=== PATIENT | female | born 1950 | race Caucasian/White ===

== ENCOUNTER 2016-05-28 | Outpatient (CLI) | payer MEDICARE, OTHER | END 2016-05-28 16:48 | disposition short-term general hospital (02) | DX: M54.9 Dorsalgia, unspecified (principal) | CPT/HCPCS: A0170; A0425; A0427 ==

== ENCOUNTER 2016-07-19 09:18 | Outpatient (CLI) | payer MEDICARE, OTHER | END 2016-07-19 09:19 | disposition home or self-care (01) | DX: E78.5 Hyperlipidemia, unspecified (principal); I25.10 Atherosclerotic heart disease of native coronary artery without angina pectoris; J44.9 Chronic obstructive pulmonary disease, unspecified ==

== ENCOUNTER 2016-09-03 14:11 | Outpatient (CLI) | payer MEDICARE, OTHER | END 2016-09-03 14:12 | disposition home or self-care (01) | DX: M16.12 Unilateral primary osteoarthritis, left hip (principal) ==

== ENCOUNTER 2016-10-19 08:57 | Outpatient (CLI) | payer MEDICARE, OTHER ==
[2016-10-19 10:28] LABS: BASOPHILS # (AUTO) 0.1 10^3/uL (0.0-0.1); BASOPHILS % (AUTO) 0.8 %; EOSINOPHILS # (AUTO) 0.2 10^3/uL (0.0-0.7); EOSINOPHILS % (AUTO) 2.5 %; HCT - HEMATOCRIT 46.4 % (37.0-47.0); HGB - HEMOGLOBIN 15.7 g/dL (12.0-16.0); LYMPHOCYTES # (AUTO) 2.3 10^3/uL (1.5-3.5); LYMPHOCYTES % (AUTO) 28.2 %; MEAN CORPUSCULAR HEMOGLOBIN 31.3 pg (27.0-31.0); MEAN CORPUSCULAR HGB CONC 33.9 g/dL (32.0-36.0); MEAN CORPUSCULAR VOLUME 92.1 fL (81.0-99.0); MEAN PLATELET VOLUME 8.7 fL (7.9-10.8); MONOCYTES # (AUTO) 0.6 10^3/uL (0.0-1.0); MONOCYTES % (AUTO) 7.1 %; NEUTROPHILS % (AUTO) 61.4 %; RED BLOOD COUNT 5.04 10^6/uL (4.20-5.40); RED CELL DISTRIBUTION WIDTH 13.9 % (12.0-15.0); UNCORRECTED WHITE BLOOD COUNT 8.1 x10^3/uL; WHITE BLOOD COUNT 8.1 x10^3/uL (4.8-10.8)
[2016-10-19 10:38] LABS: BILIRUBIN,DIRECT 0.1 mg/dL (0.1-0.5); BILIRUBIN,TOTAL 0.5 mg/dL (0.2-1.0); TOTAL PROTEIN 6.6 g/dL (6.7-8.2)
== END 2016-10-19 08:58 | disposition home or self-care (01) ==
LOC: LAB.F 08:57
PROVIDERS: ATTEND Nurse Practitioner Family
DX: R74.8 Abnormal levels of other serum enzymes (principal)
CPT/HCPCS: 36415; 80076; 85025

== ENCOUNTER 2016-12-27 08:37 | Outpatient (CLI) | payer MEDICARE, OTHER ==
[2016-12-27 19:03] LABS: BILIRUBIN,DIRECT 0.1 mg/dL (0.1-0.5); BILIRUBIN,TOTAL 0.7 mg/dL (0.2-1.0); TOTAL PROTEIN 6.7 g/dL (6.7-8.2)
== END 2016-12-27 08:38 | disposition home or self-care (01) ==
LOC: LAB.S 08:37
PROVIDERS: ATTEND Nurse Practitioner Family
DX: R74.8 Abnormal levels of other serum enzymes (principal)
CPT/HCPCS: 36415; 80076

== ENCOUNTER 2017-02-22 08:28 | Outpatient (CLI) | payer MEDICARE, OTHER ==
[2017-02-22 12:39] LABS: BILIRUBIN,DIRECT 0.1 mg/dL (0.1-0.5); BILIRUBIN,TOTAL 0.6 mg/dL (0.2-1.0); CALCIUM 9.8 mg/dL (8.5-10.3); CREATININE 0.8 mg/dL (0.4-1.0); TOTAL PROTEIN 6.6 g/dL (6.7-8.2)
== END 2017-02-22 08:29 | disposition home or self-care (01) ==
LOC: LAB.F 08:28
PROVIDERS: ATTEND Nurse Practitioner Family
DX: R74.8 Abnormal levels of other serum enzymes (principal); E78.5 Hyperlipidemia, unspecified; Z79.899 Other long term (current) drug therapy; I10 Essential (primary) hypertension; Z13.21 Encounter for screening for nutritional disorder; R20.2 Paresthesia of skin
CPT/HCPCS: 36415; 80048; 80076; 82607

== ENCOUNTER 2017-06-13 08:00 | Outpatient (CLI) | payer MEDICARE, OTHER | END 2017-06-13 08:01 | disposition home or self-care (01) | LOC: LAB.R 08:00 | PROVIDERS: ATTEND Nurse Practitioner Family | DX: Z79.891 Long term (current) use of opiate analgesic (principal) | CPT/HCPCS: 80307; 81599; G0480; 80361; 80365 ==

== ENCOUNTER 2017-09-27 08:37 | Outpatient (CLI) | payer MEDICARE, OTHER ==
[2017-09-27 12:10] LABS: CALCIUM 9.6 mg/dL (8.5-10.3); CREATININE 0.7 mg/dL (0.4-1.0)
== END 2017-09-27 08:38 | disposition home or self-care (01) ==
LOC: LAB.F 08:37
PROVIDERS: ATTEND Nurse Practitioner Family
DX: I10 Essential (primary) hypertension (principal)
CPT/HCPCS: 36415; 80048

== ENCOUNTER 2018-01-02 08:00 | Outpatient (CLI) | payer MEDICARE, OTHER ==
[2018-01-02 11:18] LABS: CHOL/HDL RATIO 5.1 (<4.4); CHOLESTEROL 149 mg/dL; HDL CHOLESTEROL 29 mg/dL; LDL CHOLESTEROL,CALCULATED 90 mg/dL; LDL/HDL RATIO 3.1 (<4.4); VLDL CHOLESTEROL 30 mg/dL
== END 2018-01-02 08:01 | disposition home or self-care (01) ==
LOC: LAB.S 08:00
PROVIDERS: ATTEND Nurse Practitioner
DX: I25.10 Atherosclerotic heart disease of native coronary artery without angina pectoris (principal)
CPT/HCPCS: 36415; 80061; 83721

== ENCOUNTER 2018-02-20 08:00 | Outpatient (CLI) | payer MEDICARE, OTHER ==
[2018-02-20 14:29] LABS: MUDS CUTOFF CONCENTRATIONS CUTOFF CONC BELOW:
[2018-02-20 17:52] LABS: AMPHETAMINE SCREEN,URINE NEGATIVE (NEGATIVE); BENZODIAZEPINES SCREEN, URINE NEGATIVE (NEGATIVE); COCAINE SCREEN URINE NEGATIVE (NEGATIVE); METHADONE SCREEN, URINE NEGATIVE (NEGATIVE); METHAMPHETAMINES SCREEN, URINE NEGATIVE (NEGATIVE); OPIATE SCREEN, URINE NEGATIVE (NEGATIVE); OXYCODONE SCREEN, URINE POSITIVE (NEGATIVE); PROPOXYPHENE SCREEN, URINE NEGATIVE (NEGATIVE); TRICYCLIC ANTIDEPRESSANT,URINE NEGATIVE (NEGATIVE)
== END 2018-02-20 08:01 ==
LOC: LAB.R 08:00
PROVIDERS: ATTEND Nurse Practitioner Family
DX: Z79.891 Long term (current) use of opiate analgesic (principal)
CPT/HCPCS: 80306

== ENCOUNTER 2018-05-29 14:09 | Outpatient (CLI) | payer MEDICARE, OTHER ==
--- NOTE | 2018-05-30 01:50 | XRAY Report ---
Reason: LOW BACK PAIN,CHRONIC,HIP PAIN,LEFT,PRESENCE OF OT Procedure Date: 05/29/2018 Accession Number: [id number] / [id number] Procedure: XR - Hip w/Pelvis 2-3V LT CPT Code: FULL RESULT: EXAM: LEFT HIP AND PELVIS RADIOGRAPHY EXAM DATE: 05/29/2018 03:50 PM. HISTORY: LOW BACK PAIN,CHRONIC,HIP PAIN,LEFT,PRESENCE OF OT. COMPARISONS: HIP W/PELVIS 2-3V LT 09/03/2016 2:32 PM. TECHNIQUE: 1 view of the pelvis and 1 view of the hip. FINDINGS: Bones: Normal. No fracture or bone lesion. Joints: Stable osteoarthritis of the left hip. Soft Tissues: Spinal stimulator pack overlying the right hip, stable. IMPRESSION: Stable osteoarthritis of the left hip. RADIA
== END 2018-05-29 14:10 | disposition home or self-care (01) ==
LOC: DI 14:09
PROVIDERS: ATTEND Nurse Practitioner
DX: M16.12 Unilateral primary osteoarthritis, left hip (principal); M54.5 Low back pain; G89.29 Other chronic pain; Z97.8 Presence of other specified devices

== ENCOUNTER 2018-07-03 08:00 | Outpatient (CLI) | payer MEDICARE, OTHER ==
[2018-07-03 18:03] LABS: ALBUMIN 3.6 g/dL (3.2-5.5); ALBUMIN/GLOBULIN RATIO 1.1 (1.0-2.2); BILIRUBIN,TOTAL 0.8 mg/dL (0.2-1.0); CREATININE 0.8 mg/dL (0.4-1.0); TOTAL PROTEIN 6.8 g/dL (6.7-8.2)
== END 2018-07-03 23:59 | disposition home or self-care (01) ==
LOC: LAB.R 08:00
PROVIDERS: ATTEND Nurse Practitioner
DX: E78.5 Hyperlipidemia, unspecified (principal); I25.10 Atherosclerotic heart disease of native coronary artery without angina pectoris
CPT/HCPCS: 80053

== ENCOUNTER 2018-11-14 11:53 | Outpatient (CLI) | payer MEDICARE, OTHER ==
--- NOTE | 2018-11-15 09:12 | CT Report ---
Reason: TOBACCO USE DISORDER Procedure Date: 11/14/2018 Accession Number: [id number] / [id number] Procedure: CT - Low Dose Lung Cancer Screen CPT Code: FULL RESULT: EXAM CT LUNG SCREEN EXAM DATE: 11/14/2018 12:04 PM. HISTORY: 68-year-old patient with [id number] smoking history. Currently smoking: Yes. Years since quitting: None. COMPARISON: CHEST W/O 11/18/2015 11:05 AM CHEST W/O 05/17/2015 11:31 AM. TECHNIQUE: CT examination of the entire thorax without contrast was performed using low-dose technique. Thin section coronal, axial, sagittal and MIP axial images were obtained. In accordance with CT protocol optimization, one or more of the following dose reduction techniques were utilized for this exam: automated exposure control, adjustment of mA and/or KV based on patient size, or use of iterative reconstructive technique. FINDINGS: Nodules: Right upper lobe: 3 mm peripheral (image 46, series 4), stable. Right middle lobe: 9 x 7 mm anterior superior (image 81, series 4), stable. Right lower lobe: 2 mm superior/perifissural (image 75, series 4), stable. Left upper lobe: Posterior subpleural 5 mm (image 44, series 4), stable. Left lower lobe: 4 mm peripheral basilar subpleural (image 116, series 4), stable. Emphysema: Mild emphysematous changes. Pleura: No pleural thickening. No pleural effusions. Aorta: Calcified plaque. No aneurysm. Mediastinum: Heart size normal. Visualized thyroid gland is unremarkable. No enlarged mediastinal or hilar lymph nodes. Diffuse fluid distention of the majority of the esophagus. Hiatal hernia present. Coronary calcifications: Moderate severe coronary artery calcified plaque. Other pulmonary findings: Lower lobe parenchymal cyst. Groundglass opacities in the peripheral left upper lobe and posterior left upper lobe are with minimal change and appear in part centrilobular. Other extrapulmonary findings: Changes seen from gastric band surgery. Included portions of the liver, gallbladder, spleen, adrenals, pancreas and kidneys and stomach and upper abdominal bowel unremarkable. Abdominal aorta calcified plaque noted. Degenerative changes of the thoracic spine. Epidural lead is noted. IMPRESSION: Lung-RADS ASSESSMENT CATEGORY: 3 - probably benign. Probability of malignancy: 1-2%. RECOMMENDATION: Continued low-dose chest CT followup in 6 months recommended. RADIA
== END 2018-11-14 11:54 | disposition home or self-care (01) ==
LOC: DI 11:53
PROVIDERS: ATTEND Registered Nurse
DX: Z12.2 Encounter for screening for malignant neoplasm of respiratory organs (principal); F17.210 Nicotine dependence, cigarettes, uncomplicated

== ENCOUNTER 2019-05-22 10:42 | Outpatient (CLI) | payer MEDICARE, OTHER ==
[2019-05-22] MEDS ORDERED: IOVERSOL 320 100 ML VIAL IVP ONE (10:50)
--- NOTE | 2019-05-22 22:38 | CT Report ---
Reason: EMPHYSEMA MILD, PULMONARY N ODULES Procedure Date: 05/22/2019 Accession Number: [id number] / [id number] Procedure: CT - CHEST WO CPT Code: Final Report FULL RESULT: EXAM: CT CHEST EXAM DATE: 05/22/2019 11:09 AM. CLINICAL HISTORY: EMPHYSEMA MILD, PULMONARY NODULES. COMPARISONS: CHEST SCREEN LOW DOSE W/O 11/14/2018 12:01 PM. TECHNIQUE: Routine helical CT imaging was performed through the chest. IV contrast: None. Reconstructions: Coronal and sagittal. In accordance with CT protocol optimization, one or more of the following dose reduction techniques were utilized for this exam: automated exposure control, adjustment of mA and/or KV based on patient size, or use of iterative reconstructive technique. FINDINGS: Lungs/Pleura: A 7 mm right perifissural nodule (image 182, series 4). A 3 mm nodule in posterior left upper lobe (image 92, series 4). A 3 mm nodule in right upper lobe (image 103, series 4). A solitary bulla in left lower lobe. Mild centrilobular emphysema. No bronchial thickening, consolidation, or edema. Pulmonary vasculature is normal. No pericardial or pleural effusion. No pneumothorax. Mediastinum: A moderate hiatal hernia in posterior mediastinum. A few subcentimeter lymph nodes in mediastinum.The heart and great vessels are normal. A moderate hiatal hernia in posterior mediastinum. Bones: Unremarkable. Visualized Abdomen: Lap banding device in left upper abdomen. Other: None. IMPRESSION: Unchanged nodules since prior dated 11/14/2018:A 7 mm right perifissural nodule, 3 mm nodules in posterior left upper lobe and right upper lobe.Benign appearing nodules. RADIA
== END 2019-05-22 10:43 | disposition home or self-care (01) ==
LOC: DI 10:42
PROVIDERS: ATTEND Registered Nurse
DX: J43.9 Emphysema, unspecified (principal); R91.8 Other nonspecific abnormal finding of lung field
CPT/HCPCS: 71250

== ENCOUNTER 2019-09-01 16:38 | Emergency (ER) | payer MEDICARE, OTHER ==
[2019-09-01 16:47] VITALS: BP 131/67
--- NOTE | 2019-09-01 16:56 | ED Physician Documentation ---
PD HPI UPPER EXT INJURY - Stated complaint Stated Complaint: RT HAND BITE - Chief complaint Chief Complaint: Laceration - History obtained from History obtained from: Patient (69-year-old woman with unknown tetanus status. Her own healthy and fully immunized dog bit her on accident to the right hand at home just prior to arrival.) Review of Systems Constitutional: denies: Fever, Chills Cardiac: reports: Reviewed and negative Respiratory: reports: Reviewed and negative PD PAST MEDICAL HISTORY - Present Medications Home Medications: Ambulatory Orders Medication Instructions Recorded Confirmed Losartan [Cozaar] 25 mg PO DAILY 06/12/14 06/26/14 Omeprazole 20 mg PO DAILY 06/12/14 06/26/14 Varenicline Tartrate [Chantix] 1 mg PO DAILY 06/12/14 06/26/14 atenoloL [Atenolol] 100 mg PO DAILY 06/12/14 06/26/14 oxyCODONE [Roxicodone] 5 mg PO 5XD 06/12/14 06/26/14 Amox/Clav 875/125 [Augmentin] 1 each PO Q12H #14 tablet 09/01/19 - Allergies Allergies/Adverse Reactions: Allergies Allergy/AdvReac Type Severity Reaction Status Date / Time No Known Drug Allergies Allergy Verified 09/01/19 16:45 PD ED PE NORMAL - Vitals Vital signs reviewed: Yes - General General: Alert and oriented X 3, No acute distress - Extremities Extremities: Other (There is a single puncture wound measuring less than a centimeter just lateral and proximal on the side of the hand near the second MCP. She is good interosseous strength and normal neurovascular status in the second digit.) - Neuro Neuro: Alert and oriented X 3, Normal speech Results - Vitals Vitals: Vital Signs - 24 hr 09/01/19 16:42 Temperature 36.6 C Heart Rate 67 Respiratory 18 Rate Blood Pressure 131/67 H O2 Saturation 97 Oxygen O2 Source Room air Procedures - Laceration (location) R hand Length in cm: 1 Wound type: Linear, Into subcut fat Wound Preparation: Irrigated copiously NS Skin layer closure: Steri strips Other: Tetanus booster given Complexity: Simple Departure - Departure Disposition: 01 Home, Self Care Clinical Impression: Dog bite Qualifiers: Encounter type: initial encounter Qualified Code(s): W54.0XXA - Bitten by dog, initial encounter Condition: Good Record reviewed to determine appropriate education?: Yes Instructions: ED Bite Animal General Prescriptions: Amox/Clav 875/125 [Augmentin] 1 each PO Q12H #14 tablet Comments: Come back for any signs of infection which would include: Redness, swelling, drainage, increased pain, or fevers. You can wash it soap and water.
[2019-09-01] MEDS: AMOX/CLAV 875 MG/125 MG TABLET PO STA (16:59)
[2019-09-01] MEDS: TETANUS/DIPHTHERIA/PERTUSSIS 0.5 ML SYRINGE IM ONE (16:59)
== END 2019-09-01 17:14 | disposition home or self-care (01) ==
LOC: ED 16:38
DX: S61.411A Laceration without foreign body of right hand, initial encounter (principal); W54.0XXA Bitten by dog, initial encounter; Y92.009 Unspecified place in unspecified non-institutional (private) residence as the place of occurrence of the external cause
CPT/HCPCS: 90471; 90715; 99283; A9270

== ENCOUNTER 2020-04-28 11:21 | Outpatient (CLI) | payer MEDICARE, OTHER ==
--- NOTE | 2020-04-29 09:00 | Mammography Report ---
BILATERAL DIGITAL DIAGNOSTIC MAMMOGRAM 3D/2D: 04/28/2020 CLINICAL: Occasional left breast/nipple pain. Comparison is made to exams dated: 04/18/2014 mammogram and 08/21/2009 mammogram - [facility]. The tissue of both breasts is predominantly fatty. No significant masses, calcifications, or other findings are seen in either breast. There has been no significant interval change. IMPRESSION: NEGATIVE There is no mammographic evidence of malignancy. Return to annual mammogram screening schedule is rec ommended. This exam was interpreted at Station ID: [id number]. NOTE: For mammograms, a report in lay terms will be sent to the patient. Approximately 15% of breast malignancies will not be visualized mammographically. In the management of a palpable breast mass, a negative mammogram must not discourage biopsy of a clinically suspicious lesion. Electronically Signed By: Abrahan Ralph M.D., [email or web address]:04/28/2020 11:59:56 ACR BI-RADS Category 1: Negative 3341F PARENCHYMAL PATTERN: (F) - The breast(s) demonstrate(s) diffuse fatty replacement. BI-RADS CATEGORY: (1) - 1 RECOMMENDATION: (ANNUAL) - Recommend routine annual screening mammography. [id number] return to screening LATERALITY: (B)
== END 2020-04-28 11:22 | disposition home or self-care (01) ==
LOC: DI 11:21
PROVIDERS: ATTEND Registered Nurse
DX: N64.4 Mastodynia (principal)

== ENCOUNTER 2020-06-04 07:40 | Outpatient (CLI) | payer MEDICARE, OTHER ==
[2020-06-04 16:06] LABS: BASOPHILS # (AUTO) 0.1 10^3/uL (0.0-0.1); BASOPHILS % (AUTO) 0.8 %; EOSINOPHILS # (AUTO) 0.1 10^3/uL (0.0-0.7); EOSINOPHILS % (AUTO) 1.7 %; HGB - HEMOGLOBIN 15.3 g/dL (12.0-16.0); LYMPHOCYTES # (AUTO) 1.9 10^3/uL (1.5-3.5); LYMPHOCYTES % (AUTO) 29.1 %; MEAN CORPUSCULAR HEMOGLOBIN 29.4 pg (27.0-31.0); MEAN CORPUSCULAR HGB CONC 31.4 g/dL (32.0-36.0); MEAN CORPUSCULAR VOLUME 93.5 fL (81.0-99.0); MEAN PLATELET VOLUME 10.7 fL (7.9-10.8); MONOCYTES # (AUTO) 0.6 10^3/uL (0.0-1.0); MONOCYTES % (AUTO) 8.7 %; NEUTROPHILS # (AUTO) 3.8 10^3/uL (1.5-6.6); NEUTROPHILS % (AUTO) 59.5 %; PLT - PLATELET COUNT 246 10^3/uL (130-450); RED BLOOD COUNT 5.21 10^6/uL (4.20-5.40); RED CELL DISTRIBUTION WIDTH 15.7 % (12.0-15.0); WHITE BLOOD COUNT 6.4 x10^3/uL (4.8-10.8)
[2020-06-04 16:50] LABS: ALBUMIN 3.7 g/dL (3.2-5.5); ALBUMIN/GLOBULIN RATIO 1.2 (1.0-2.2); ALKALINE PHOSPHATASE 83 IU/L (42-121); ALT ALANINE AMINOTRANSFERASE 47 IU/L (10-60); AST ASPARTATE AMINOTRANSFERASE 33 IU/L (10-42); BILIRUBIN,TOTAL 0.6 mg/dL (0.2-1.0); BUN - BLOOD UREA NITROGEN 21 mg/dL (6-20); CALCIUM 10.1 mg/dL (8.5-10.3); CARBON DIOXIDE - CO2 27 mmol/L (21-32); CHLORIDE 104 mmol/L (101-111); CHOL/HDL RATIO 3.2 (<4.4); CHOLESTEROL 113 mg/dL; CREATININE 0.8 mg/dL (0.4-1.0); GLUCOSE 107 mg/dL (70-100); HDL CHOLESTEROL 35 mg/dL; LDL CHOLESTEROL,CALCULATED 51 mg/dL; LDL/HDL RATIO 1.5 (<4.4); SODIUM 138 mmol/L (135-145); TOTAL PROTEIN 6.7 g/dL (6.7-8.2); VLDL CHOLESTEROL 27 mg/dL
== END 2020-06-04 07:41 | disposition home or self-care (01) ==
LOC: LAB.S 07:40
PROVIDERS: ATTEND Registered Nurse
DX: K76.0 Fatty (change of) liver, not elsewhere classified (principal); E66.01 Morbid (severe) obesity due to excess calories; G47.33 Obstructive sleep apnea (adult) (pediatric); E78.5 Hyperlipidemia, unspecified; I10 Essential (primary) hypertension; F17.209 Nicotine dependence, unspecified, with unspecified nicotine-induced disorders
CPT/HCPCS: 36415; 80053; 80061; 83721; 84443; 85025

== ENCOUNTER 2020-06-18 12:40 | Outpatient (CLI) | payer MEDICARE, OTHER ==
[2020-06-18] MEDS ORDERED: IOVERSOL 320 100 ML VIAL IVP ONE ×2 (13:03→13:21)
--- NOTE | 2020-06-18 14:36 | CT Report ---
PROCEDURE: ANGIO CHEST W/WO INDICATIONS: HISTORY OF AAA TECHNIQUE: After the administration of intravenous contrast, 2 mm thick sections acquired from the pulmonary api john to the posterior costophrenic angles. 3-dimensional maximum intensity projection (MIP) coronal a nd sagittal reformats were then acquired through the thorax. For radiation dose reduction, the follow ing was used: automated exposure control, adjustment of mA and/or kV according to patient size. COMPARISON: CT chest 05/22/2019, 11/18/2015, CT abdomen pelvis 05/07/2011 FINDINGS: Image quality: Excellent. Pulmonary arteries: Pulmonary arteries are normal in size, and demonstrate no intraluminal filling d efects to suggest central pulmonary embolism. Lungs and pleura: 7 mm. Fissural nodule on series 7 image 171 is unchanged. 3 mm right upper lobe nod ule is also stable. Emphysematous changes are present. Emphysematous bleb is present in the left lowe r lobe. No pleural effusions or pneumothorax. Central and peripheral airways are patent. Mediastinum: Heart size is enlarged, without pericardial effusion. No mediastinal or hilar adenopat hy. Thoracic aorta measures 32 mm in the descending portion, unchanged. Limited, visualized portions of the upper abdominal aorta demonstrate prominent areas of mural thrombus. At the level of the kidn eys, mural thrombus causes approximately 50% narrowing of the opacified lumen. Esophagus is fluid-los led with prominent hernia. Gastric bypass changes are noted. Bones and chest wall: No suspicious bony lesions. Ribs and thoracic spine appear intact throughout. Unchanged low-attenuation left thyroid lobe focus with calcification. No axillary or supraclavicul ar adenopathy. Abdomen: Visualized upper abdominal solid organs appear normal in the early arterial phase of enhanc ement. IMPRESSION: 1. No gross aneurysmal dilation. 2. 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 Prior exams are witho ut contrast, which limits direct comparison. Reviewed by: Alba Travis MD on 06/18/2020 2:35 PM PST Approved by: Alba Travis MD on 06/18/2020 2:35 PM PST Station ID: [id number]
== END 2020-06-18 12:41 | disposition home or self-care (01) ==
LOC: DI 12:40
PROVIDERS: ATTEND Registered Nurse
DX: I71.4 Abdominal aortic aneurysm, without rupture (principal)
CPT/HCPCS: 71275; Q9967

== ENCOUNTER 2020-11-06 07:36 | Outpatient (CLI) | payer MEDICARE, OTHER ==
[2020-11-06 15:12] LABS: HCT - HEMATOCRIT 52.3 % (37.0-47.0); HGB - HEMOGLOBIN 16.7 g/dL (12.0-16.0); MEAN CORPUSCULAR HEMOGLOBIN 29.1 pg (27.0-31.0); MEAN CORPUSCULAR HGB CONC 31.9 g/dL (32.0-36.0); MEAN CORPUSCULAR VOLUME 91.3 fL (81.0-99.0); MEAN PLATELET VOLUME 11.1 fL (7.9-10.8); RED BLOOD COUNT 5.73 10^6/uL (4.20-5.40); RED CELL DISTRIBUTION WIDTH 17.2 % (12.0-15.0)
[2020-11-06 16:20] LABS: ALBUMIN 3.8 g/dL (3.2-5.5); ALBUMIN/GLOBULIN RATIO 1.3 (1.0-2.2); ALKALINE PHOSPHATASE 84 IU/L (42-121); ALT ALANINE AMINOTRANSFERASE 39 IU/L (10-60); AST ASPARTATE AMINOTRANSFERASE 35 IU/L (10-42); BILIRUBIN,TOTAL 0.5 mg/dL (0.2-1.0); BUN - BLOOD UREA NITROGEN 18 mg/dL (6-20); CARBON DIOXIDE - CO2 27 mmol/L (21-32); CHLORIDE 104 mmol/L (101-111); CHOL/HDL RATIO 3.3 (<4.4); CHOLESTEROL 111 mg/dL; CREATININE 0.8 mg/dL (0.4-1.0); GFR - MDRD 71 (>89); GLUCOSE 108 mg/dL (70-100); HDL CHOLESTEROL 34 mg/dL; LDL CHOLESTEROL,CALCULATED 51 mg/dL; LDL/HDL RATIO 1.5 (<4.4); POTASSIUM 4.2 mmol/L (3.5-5.0); SODIUM 139 mmol/L (135-145); TOTAL PROTEIN 6.8 g/dL (6.7-8.2); TRIGLYCERIDES 130 mg/dL; VLDL CHOLESTEROL 26 mg/dL
[2020-11-06 21:04] LABS: ESTIMATED AVERAGE GLUCOSE 126 mg/dL (70-100)
[2020-11-07 13:27] LABS: HEPATITIS C ANTIBODY NON-REACTIVE (NON-REACTIVE)
== END 2020-11-06 07:37 | disposition home or self-care (01) ==
LOC: LAB.S 07:36
DX: Z00.00 Encounter for general adult medical examination without abnormal findings (principal); E66.9 Obesity, unspecified; K21.9 Gastro-esophageal reflux disease without esophagitis; I10 Essential (primary) hypertension; E78.5 Hyperlipidemia, unspecified; R79.89 Other specified abnormal findings of blood chemistry
CPT/HCPCS: 36415; 80053; 80061; 82607; 83036; 83721; 85027; 86803